=== PATIENT | female | born 1985 | race Caucasian/White ===

== ENCOUNTER 2022-02-17 12:48 | Outpatient (CLI) | payer OTHER, SELFPAY ==
[2022-02-17 15:25] LABS: Hematocrit 37.7 % (37.0-47.0); Hemoglobin 11.8 g/dL (12.0-15.0)
[2022-02-17 15:40] LABS: Anion Gap 7 mmol/L (8-16); Blood Urea Nitrogen 16 mg/dL (7-17); Calcium 8.1 mg/dL (8.4-10.2); Carbon Dioxide 26 mmol/L (22-30); Chloride 103 mmol/L (98-107); Estimated Glomerular Filt Rate > 60; Glucose 242 mg/dL (65-110); Sodium 136 mmol/L (137-145)
== END 2022-02-17 12:49 | disposition home or self-care (01) ==
PROVIDERS: Anesthesiology; PCP Internal Medicine Endocrinology, Diabetes & Metabolism; Visit Provider Obstetrics & Gynecology
DX: Z01.812 Encounter for preprocedural laboratory examination (principal); E11.9 Type 2 diabetes mellitus without complications; D64.9 Anemia, unspecified
CPT/HCPCS: 36415; 80048; 85014; 85018

== ENCOUNTER 2022-02-21 00:14 | Day surgery (SDC) | payer OTHER, SELFPAY ==
[2022-02-15 09:34] VITALS: BMI 45.1
--- NOTE | 2022-02-15 10:21 | SUR.PREOP ---
Addendum entered by Sherly Zhu RN 02/16/22 07:43: PLEASE CONTINUE USUAL BASAL RATE ON INSULIN PUMP MORNING OF SURGERY. PLEASE CALL [phone] (SURGERY PREOP AREA) MORNING OF SURGERY IF BLOOD SUGAR SEEMS UNUSUALLY HIGH OR LOW. Original Note: Report to the Outpatient Waiting Room, entrance under the green pavilion located off [facility], at time 0900 on date 02/21/2022. OR Time: 1100. - You and your visitor will be asked a series of questions to screen for COVID 19 for your protection. - Only one visitor is allowed at this time. - The patient visitor is requested to leave or wait in car when not with patient. - A mask is required within the hospital. Patients may have clear liquids (water, carbonated beverages, clear teas, apple juice) until 3 hours prior to surgery with a maximum of 20 ounces. - No food from midnight until time of surgery - Infants may have breast milk until 4 hours before surgery, infant formula 6 hours prior to surgery. - Children will be allowed to drink immediately following surgery. If applicable, please bring a bottle or sippy cup to assist with drinking. Juice, water, soda, and popsicles are readily available. For infants on formula, please bring formula the day of surgery. Pacifiers are allowed. Take the following medications with a SIP of water the morning of surgery: FLUOXETINE, LEVOTHYROXINE Medications to discontinue per physician PAUSE INSULIN PUMP MORNING OF PROCEDURE Date to take last dose Please no make-up, nail citizen of [place], hairspray, perfume, deodorant, or body powder the day of surgery. No jewelry (including any body piercings) or valuables the day of surgery, leave them at home. Please take a shower or bath the night before, or the morning of, surgery with an antibacterial soap. Wear comfortable, loose fitting clothing. Children are encouraged to wear pajamas. - Jewelry must be removed prior to entering the operating room. Rings and piercings that are not removed may be cut off. - The hospital will not accept responsibility for valuables. - Please leave all valuables, including medications, at home the day of surgery. If you are going home after surgery, a licensed truck driver salesperson must drive you home. - NO public transportation without another adult. - We recommend that an adult stay with you for 24 hours following discharge. - We also recommend that you do not drive, make important decision, drink alcoholic beverages, or take any drugs that were not prescribed by your health care provider for at least 24 hours after your discharge time. For Pediatric surgeries, we recommend two adults accompany the child home (only one inside the building at this time). Follow any additional instructions given to you from your surgeon. If you or anyone in your household have experienced Covid symptoms in the past week, please notify your surgeon or the nurse liaison at the phone number below for possible testing. Telephone instructions given to ANALILIA ORTIZ and asked if any additional questions and then verbalized understanding. Patient advised to call surgeon office or pre surgery nurse liaison [phone] if any additional questions.
--- NOTE | 2022-02-20 20:27 | PM.IMHP ---
H&P: HPI History of Present Illness Date/Time: 02/20/22 20:27 Chief Complaint: mons skin lesions Narrative: Rhona is a 36yo G0, who presents for scheduled surgery. She has a spot on the left side of her mons; possibly skin tag. She reports that is has not changed in a long time but does irritate her when her clothes rub on it. Does have DM and hypothyroidism; both controlled. Review of Systems Review of Systems: All systems reviewed & are unremarkable except as noted in HPI and below PMFSH Past Medical History Medical History Anemia Encounter for screening examination for sexually transmitted disease H/O Sixto thyroiditis Type 1 diabetes Surgical History Surgical History Hx of cholecystectomy 2015 Family History Family History Mother Diabetes mellitus Sibling Hodgkin lymphoma Grandparent Carcinoma of colon Other Thyroid cancer Social History Social History Smoking status: Never smoker Smoking end date: 03/17/14 Alcohol intake: never Substance use: never Substance use type: does not use Additional living arrangements comments: single 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 Gender identity (if verbalized by the patient): Female Sexual Orientation (if Verbalized by the Patient): Straight or Heterosexual Spiritual care concerns: No Meds Home Medications and Allergies Home Medications Medication Instructions Recorded Confirmed Type cetirizine 10 mg capsule (Zyrtec) 10 mg PO DAILY PRN Allergy Symptoms 02/02/22 02/15/22 History fexofenadine 180 mg tablet 180 mg PO DAILY 02/02/22 02/15/22 History (Breanne Allergy) fluoxetine 20 mg capsule (Prozac) 60 mg PO DAILY 02/02/22 02/15/22 History insulin lispro 100 unit/mL 1 sliding scale dose subcut 02/02/22 02/15/22 History subcutaneous solution (Humalog USEASDIRECTD U-100 Insulin) levothyroxine 88 mcg capsule 88 mcg PO DAILY 02/02/22 02/15/22 History meloxicam 7.5 mg tablet 7.5 mg PO DAILY 02/02/22 02/15/22 History montelukast 10 mg tablet 10 mg PO DAILY 02/02/22 02/15/22 History (Singulair) omeprazole 20 mg capsule,delayed 20 mg PO DAILY 02/02/22 History release iron 1 tab-cap PO DAILY 02/15/22 02/15/22 History norgestimate-ethinyl estradiol 1 tablet PO DAILY #84 tabs 02/16/22 Rx 0.18 mg/0.215mg/0.25mg-35 mcg(28)tablet (Tri-Estarylla) Allergies Allergy/AdvReac Type Severity Reaction Status Date / Time No Known Allergies Allergy Unknown Verified 02/15/22 09:43 Exam Const: General: cooperative, healthy appearing, comfortable and no acute distress Resp: Effort & Inspection: normal respiratory effort Cardio: Rate: regular rate GI: Inspection: normal to inspection GI Palp: No abdominal tenderness and Yes Soft to palpation : Other: deferred to OR Skin: General skin exam: normal color Neuro: General: patient oriented x3 Extrem: General: normal to inspection Psych: Appearance: grossly normal Affect: normal affect Attitude: cooperative Assessment and Plan Assessment and plan (1) Vulvar lesion: Code(s): N90.89 - Other specified noninflammatory disorders of vulva and perineum Status: Acute Plan - Proceed with wide local excision of vulvar lesion - Risks and benefits explained in detail and questions answered.
--- NOTE | 2022-02-21 07:00 | WPDANESEPPF ---
Anes - Initial Pre Proc Eval Procedure: Operation Date: 02/21/22 10:00 Proposed Procedures p Wide Local Excision Left Vulvar Lesion - Vanesa Quesada MD Date/Time: 02/21/22 07:00 Surgeon: Vanesa Quesada MD Pre Op Diagnosis: left vulvar lesion Patient Data Age: 36 Gender: F Height: 1.68 m Weight: 127.01 kg Allergies Allergy/AdvReac Type Severity Reaction Status Date / Time No Known Allergies Allergy Unknown Verified 02/15/22 09:43 Home Medications Medication Instructions Recorded Confirmed Type cetirizine 10 mg capsule (Zyrtec) 10 mg PO DAILY PRN Allergy Symptoms 02/02/22 02/15/22 History fexofenadine 180 mg tablet 180 mg PO DAILY 02/02/22 02/15/22 History (Breanne Allergy) fluoxetine 20 mg capsule (Prozac) 60 mg PO DAILY 02/02/22 02/15/22 History insulin lispro 100 unit/mL 1 sliding scale dose subcut 02/02/22 02/15/22 History subcutaneous solution (Humalog USEASDIRECTD U-100 Insulin) levothyroxine 88 mcg capsule 88 mcg PO DAILY 02/02/22 02/15/22 History meloxicam 7.5 mg tablet 7.5 mg PO DAILY 02/02/22 02/15/22 History montelukast 10 mg tablet 10 mg PO DAILY 02/02/22 02/15/22 History (Singulair) omeprazole 20 mg capsule,delayed 20 mg PO DAILY 02/02/22 History release iron 1 tab-cap PO DAILY 02/15/22 02/15/22 History norgestimate-ethinyl estradiol 1 tablet PO DAILY #84 tabs 02/16/22 Rx 0.18 mg/0.215mg/0.25mg-35 mcg(28)tablet (Tri-Estarylla) Patient hx anesthesia problems: none Family hx anesthesia problems: none Results Review: All pre-operative results and documents have been reviewed as part of the pre-operative evaluation. [facility] Past Medical History Medical History (Updated 02/21/22 @ 07:01 by James Stack DO) Anemia Anxiety Asthma Depression Encounter for screening examination for sexually transmitted disease H/O Sixto thyroiditis Insulin pump in place YANNA (obstructive sleep apnea) Type 1 diabetes Surgical History Surgical History Hx of cholecystectomy 2016 Family History Family History Mother Diabetes mellitus Sibling Hodgkin lymphoma Grandparent Carcinoma of colon Other Thyroid cancer Social History Social History Smoking status: Never smoker Smoking end date: 03/17/14 Alcohol intake: never Substance use: never Substance use type: does not use Living arrangements: alone Additional living arrangements comments: single 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 Gender identity (if verbalized by the patient): Female Sexual Orientation (if Verbalized by the Patient): Straight or Heterosexual Spiritual care concerns: No Anes - Eval Final PreProcedure Day of Procedure 02/21/22 07:00 Patient weight: morbidly obese Heart: regular rate and rhythm Lungs: clear to auscultation Airway: Mallampati scale class II Neurological: alert and oriented Last oral intake: >/= 8 hours ASA classification: III Emergent: no Anesthetic plan: proceed Anesthesia type and monitoring: general GIVS and LMA and standard monitoring Results Review: All pre-operative results and documents have been reviewed as part of the pre-operative evaluation. Informed Consent: The patient's anesthetic plan and its attendant risks and benefits were discussed with the patient/family/POA. Questions were solicited and answers provided to the satisfaction of the patient/family/POA.
--- NOTE | 2022-02-21 07:06 | WPDHPUPDATE1 ---
History and Physical Update Update Date/Time: 02/21/22 07:06 History and Physical has been reviewed, including an updated exam of the patient. There are NO changes in the patient's condition. Risks, benefits, and alternatives have been discussed and questions answered. Patient agrees to proceed with procedure.
[2022-02-21 08:35] VITALS: BP 146/86; PULSE 86; RESP 16; TEMP 36.7; O2SAT 98
[2022-02-21] MEDS: ACETAMINOPHEN 500 MG TABLET 1000 MG PO (08:48)
[2022-02-21] MEDS: LACTATED RINGERS 1,000 ML 30 ML IV CONT (09:15)
[2022-02-21 09:22] LABS: Glucose Point of Care 184 mg/dl (65-105)
[2022-02-21] MEDS: BUPIVACAINE/EPINEPHRINE 0.25% 50 ML VIAL INFILTRATE (10:13)
--- NOTE | 2022-02-21 10:32 | W.PM.PROC2 ---
Procedure Note - Detailed Date of Procedure 02/21/22 Pre-op Diagnosis left vulvar lesion Post-op Diagnosis Same Procedure Performed wide local excision of vulvar lesion Surgeon Vanesa Quesada MD Anesthesia MAC and Local (26cc of 0.25% marcaine with epi) Indications Rhona is a 36yo G0, who presents for scheduled surgery. She has a spot on the left side of her mons; possibly skin tag. She reports that is has not changed in a long time but does irritate her when her clothes rub on it. Findings 1cm x 0.6cm wart like lesion on the left mons removed w/o issue; good hemostasis at end of case Description of Procedure Rhona was taken to the operating room where she was placed under sedation without complications. She was then prepped and draped in the usual sterile fashion the dorsal lithotomy position with her legs in low Jerson stirrups. A time-out was performed and no preoperative antibiotics were indicated. An elliptical drawing was traced out around the lesion. The lesion was then infiltrated with 0.25% Marcaine with epinephrine. The lesion was excised using a scalpel and Allis clamps. Hemostasis was achieved with Bovie cautery. The incision was reapproximated using 2-0 Vicryl in a continuous running fashion. The skin was reapproximated using 4-0 Monocryl in a subcuticular fashion. The incision was then infiltrated with additional cord% Marcaine with epinephrine for better pain control. Sponge, lap, instrument, and needle counts were correct at the end the procedure. Patient was awoken from anesthesia and taken recovery with plans of same-day discharge home. Estimated Blood Loss 5 Pathology Yes Complications No immediate complications Condition Stable Disposition Same day [facility] Billing Surgery - Charge Forward: Surgery Billing
[2022-02-21 10:40] VITALS: BP 118/64; PULSE 87; RESP 12; O2SAT 100
[2022-02-21 11:10] VITALS: BP 126/83; PULSE 83; RESP 16
[2022-02-21 11:45] VITALS: BP 118/78; PULSE 80; RESP 16
== END 2022-02-21 11:50 | disposition home or self-care (01) ==
PROVIDERS: PCP Internal Medicine Endocrinology, Diabetes & Metabolism; Visit Provider Obstetrics & Gynecology
PROC: (CPT 11421; principal; 2022-02-21 10:00)
DX: A63.0 Anogenital (venereal) warts (principal); D64.9 Anemia, unspecified; J45.909 Unspecified asthma, uncomplicated; F41.9 Anxiety disorder, unspecified; F32.A Depression, unspecified; G47.33 Obstructive sleep apnea (adult) (pediatric); E10.9 Type 1 diabetes mellitus without complications; Z96.41 Presence of insulin pump (external) (internal); Z79.4 Long term (current) use of insulin; E66.01 Morbid (severe) obesity due to excess calories; Z68.41 Body mass index [BMI] 40.0-44.9, adult
CPT/HCPCS: 11421; 12041; 36415; 80048; 82948; 85014; 85018; 88305; A9270; J2250; J2405; J2704; J3010; J7120